=== PATIENT | female | born 1990 | race Caucasian/White ===

== ENCOUNTER 2017-11-27 03:24 | Emergency (ER) | payer SELFPAY ==
[~2017-11-27] VITALS: Ht 157.5 cm; Wt 70.5 kg
[2017-11-27 03:25] VITALS: BP 110/62
== END 2017-11-27 05:30 | disposition left against medical advice (07) ==
LOC: EMS 03:27
DX: Z53.21 Procedure and treatment not carried out due to patient leaving prior to being seen by health care provider (principal)